=== PATIENT | male | born 1960 | race Caucasian/White ===

== ENCOUNTER 2023-04-29 12:59 | Outpatient (CLI) | payer BC | END 2023-04-29 13:00 | disposition home or self-care (01) | LOC: CSHMRI 12:59 | PROVIDERS: ATTEND Neurological Surgery | DX: M54.50 Low back pain, unspecified (principal); R26.89 Other abnormalities of gait and mobility; M47.812 Spondylosis without myelopathy or radiculopathy, cervical region; G95.20 Unspecified cord compression; M43.16 Spondylolisthesis, lumbar region | CPT/HCPCS: 72100; 72141 ==

== ENCOUNTER 2024-04-14 10:17 | Outpatient (CLI) | payer MEDICARE ==
[2024-04-14] MEDS ORDERED: Magnevist 469MG/ML 20 ML VIAL ONE (10:59)
== END 2024-04-14 10:18 | disposition home or self-care (01) ==
LOC: CSHMRI 10:17
PROVIDERS: ATTEND Radiology Radiation Oncology
DX: G50.0 Trigeminal neuralgia (principal); R90.82 White matter disease, unspecified; J32.4 Chronic pansinusitis
CPT/HCPCS: 36415; 70553; 82565